=== PATIENT | female | born 2000 | race Caucasian/White ===

== ENCOUNTER 2022-11-01 21:14 | Emergency (ER) | payer OTHER ==
[~2022-11-01] VITALS: Ht 157.5 cm; Wt 62.6 kg
== END 2022-11-02 00:02 | disposition home or self-care (01) ==
LOC: ER 21:14
DX: S90.812A Abrasion, left foot, initial encounter (principal); S90.811A Abrasion, right foot, initial encounter; W45.8XXA Other foreign body or object entering through skin, initial encounter; Y93.9 Activity, unspecified; Y92.59 Other trade areas as the place of occurrence of the external cause